=== PATIENT | male | born 1930 | race Caucasian/White ===

== ENCOUNTER 2017-10-18 14:55 | Inpatient (IN) | END 2017-10-21 16:45 | disposition home or self-care (01) | DRG 378 ==

== ENCOUNTER 2018-10-07 18:11 | Emergency (ER) | payer MEDICARE, OTHER ==
[~2018-10-07] VITALS: Ht 170.2 cm; Wt 67.9 kg
[~2018-10-07 18:11] MED LIST: ASPI-817 PO; ATEN-51 PO; CARB1TAB46 PO; CIPR500T4 PO; EXEL46P TD; FINA5TAB4 PO; LEVE10006 PO; LEVE250T5 PO; MEMA10TA PO; METR500T PO; NIFE30TA43 PO; PANT40TA4 PO; SIMV20TA PO
[2018-10-07 18:49] VITALS: Ht 170.2 cm; Wt 67.9 kg
[2018-10-07] MEDS ORDERED: predniSONE 20 MG TAB PO STA (19:32)
[2018-10-07] MEDS ORDERED: DIPHENHYDRAMINE 25 MG CAP PO STA (19:32)
[2018-10-07] MEDS ORDERED: FAMOTIDINE 20 MG TAB PO STA (19:32)
[2018-10-07] MEDS ORDERED: EPINEPHrine 1 MG INJ IM STA (19:32)
[2018-10-07] MEDS ORDERED: PRED20TA PO (21:09)
[2018-10-07] MEDS ORDERED: EPIN0.3P4 INJ (21:09)
[2018-10-07 21:10] VITALS: BP 157/61; PULSE 75; RESP 15
[2018-10-07] MEDS ORDERED: ATEN-51 PO (21:25)
[2018-10-07] MEDS ORDERED: FINA5TAB4 PO (21:25)
[2018-10-07] MEDS ORDERED: CARB1TAB34 PO (21:30)
[2018-10-07] MEDS ORDERED: MEMA10TA PO (21:32)
[2018-10-07] MEDS ORDERED: LEVE10006 PO (21:32)
[2018-10-07] MEDS ORDERED: LEVE250T5 PO (21:32)
[2018-10-07] MEDS ORDERED: NIFE30TA23 PO (21:32)
[2018-10-07] MEDS ORDERED: EXEL46P TD (21:33)
[2018-10-07] MEDS ORDERED: PANT40TA4 PO (21:33)
[2018-10-07] MEDS ORDERED: SIMV20TA PO (21:33)
[2018-10-07] MEDS ORDERED: GLIP2.5T3 PO (21:34)
--- NOTE | 2018-10-07 22:58 | ERD ---
ER Documentation Chief Complaint Chief Complaint POSSIBLE ALLERGIC REACTION TO SOAP, C/O SOB DIFF SWALLOWING, LIP SWELLING HPI Patient is a 88-year-old male with hypertension and diabetes who presents with lip and tongue swelling. He supposedly ate a piece of soap that was wrapped in a rapid he thought it was candy. He did this at 3:30 PM and had swelling afterwards. He did not have any swelling previously. Upon review of old medical records this is the patient's eighth visit to the ER since 2005. His primary doctor is Dr. Allen. ROS All systems reviewed and are negative except as per history of present illness. Medications Home Meds Active Scripts Prednisone* (Prednisone*) 20 Mg Tab, 60 MG PO DAILY for 4 Days, TAB Prov:BELLA TAYLOR MD 10/07/18 Epinephrine (Epipen 2-Alfonzo) 0.3 Mg/0.3 Ml Pen.injctr, 1 EA INJ ONCE PRN for ALLERGIC REACTION, #1 EA Prov:BELLA TAYLOR MD 10/07/18 Reported Medications Glipizide* (Glipizide ER*) 2.5 Mg Tab.er.24, 2.5 MG PO DAILY, TAB 10/07/18 Simvastatin* (Zocor*) 20 Mg Tablet, 20 MG PO QHS, #30 TAB 10/07/18 Rivastigmine* Patch (Exelon* Patch) 4.6 Mg/24 Hr Patch.td24, 1 PATCH TD DAILY, PATCH 10/07/18 Pantoprazole* (Pantoprazole*) 40 Mg Tablet.dr, 40 MG PO AC BREAKFAST, TAB 10/07/18 Nifedipine* (Nifedipine ER*) 30 Mg Tablet.sa, 30 MG PO DAILY, TAB.SA 10/07/18 Memantine* (Namenda*) 10 Mg Tablet, 10 MG PO BID, #60 TAB 10/07/18 Levetiracetam* (Levetiracetam*) 1,000 Mg Tablet, 1000 MG PO BID, TAB 10/07/18 Levetiracetam* (Levetiracetam*) 250 Mg Tablet, 250 MG PO BID, TAB 10/07/18 Carbidopa/Levodopa (Carbidopa-Levodopa 25-100 Tab) 1 Each Tablet, 1 EACH PO QID, TAB 10/07/18 Finasteride* (Finasteride*) 5 Mg Tablet, 5 MG PO DAILY, TAB 10/07/18 Atenolol* (Atenolol*) 25 Mg Tablet, 25 MG PO DAILY, #30 TAB 10/07/18 Discontinued Reported Medications Rivastigmine* Patch (Exelon* Patch) 4.6 Mg/24 Hr Patch.td24, 1 PATCH TD DAILY, PATCH 10/18/17 Atenolol* (Atenolol*) 25 Mg Tablet, 25 MG PO DAILY, #30 TAB 10/18/17 Simvastatin* (Zocor*) 20 Mg Tablet, 20 MG PO QHS, #30 TAB 10/18/17 Pantoprazole* (Pantoprazole*) 40 Mg Tablet.dr, 40 MG PO AC BREAKFAST, TAB 10/18/17 Nifedipine* (Adalat CC*) 30 Mg Tablet.sa, 30 MG PO DAILY, #30 TAB.SA 10/18/17 Memantine* (Namenda*) 10 Mg Tablet, 10 MG PO BID, #60 TAB 10/18/17 Levetiracetam* (Levetiracetam*) 1,000 Mg Tablet, 1000 MG PO BID, TAB 10/18/17 Levetiracetam* (Levetiracetam*) 250 Mg Tablet, 250 MG PO BID, TAB 10/18/17 Finasteride* (Finasteride*) 5 Mg Tablet, 5 MG PO DAILY, TAB 10/18/17 Carbidopa/Levodopa (CARBIDOPA-LEVO 25-100 MG ODT) 1 Each Tab.rapdis, 1 TAB PO QID, #120 TAB 10/18/17 Aspirin* (Aspirin* EC) 81 Mg Tablet.dr, 81 MG PO DAILY, TAB 10/18/17 Discontinued Scripts Metronidazole* (Flagyl*) 500 Mg Tablet, 500 MG PO Q8, #42 TAB Prov:STACEY AUGUST [employer] 10/21/17 Ciprofloxacin Hcl* (Ciprofloxacin Hcl*) 500 Mg Tablet, 500 MG PO BID, #28 TAB Prov:STACEY AUGUST [employer] 10/21/17 Allergies Allergies: Coded Allergies: codeine (Unverified Allergy, Unknown, 10/07/18) PMhx/Soc History of Surgery: Yes (Cranitomoy in 2005) Anesthesia Reaction: No Hx Neurological Disorder: No Hx Respiratory Disorders: No Hx Cardiac Disorders: Yes (CAD, HTN) Hx Psychiatric Problems: No (DEMENTIA) Hx Miscellaneous Medical Probl: Yes (Parkinsons,seizure disorders, DM) Hx Alcohol Use: No Hx Substance Use: No Hx Tobacco Use: No Smoking Status: Never smoker FmHx Family History: diabetes Physical Exam Vitals Vital Signs Date Temp Pulse Resp B/P (MAP) Pulse Ox O2 O2 Flow FiO2 Time Delivery Rate 10/07/18 99.4 75 15 157/61 97 Room Air 21:10 (93) 10/07/18 79 15 171/70 99 20:00 (103) 10/07/18 97.6 80 19 179/74 99 18:49 (109) Physical Exam Const: No acute distress Head: Atraumatic Eyes: Normal Conjunctiva ENT: Left lower lip swelling, no obvious tongue swelling at this time, no oropharyngeal swelling, no stridor over the neck Neck: Full range of motion. No meningismus. No stridor Resp: Clear to auscultation bilaterally Cardio: Regular rate and rhythm, no murmurs Abd: Soft, non tender, non distended. Normal bowel sounds Skin: No petechiae or rashes Back: No midline or flank tenderness Ext: No cyanosis, or edema Neur: Awake and alert Psych: Normal Mood and Affect Results 24 hrs Current Medications Medications Dose Sig/Michael Start Time Status Last (Trade) Ordered Route PRN Stop Time Admin Dose Reason Admin 25 mg ONCE STAT 10/07/18 DC 10/07/18 Diphenhydrami PO 19:32 19:45 ne HCl 10/07/18 19:33 (Benadryl) Epinephrine 0.3 mg ONCE STAT 10/07/18 DC 10/07/18 IM 19:32 19:45 (EPINEPHrine) 10/07/18 19:33 Famotidine 20 mg ONCE STAT 10/07/18 DC 10/07/18 (Pepcid) PO 19:32 19:45 10/07/18 19:33 Prednisone 60 mg ONCE STAT 10/07/18 DC 10/07/18 (Prednisone) PO 19:32 19:45 10/07/18 19:33 Procedures/MDM Patient is a 88-year-old male who presents with acute allergic reaction versus anaphylaxis. The patient was given epinephrine, Benadryl, Pepcid, and prednisone. I was concerned for lip and tongue swelling. However there is no signs of airway compromise at this time. He improved with treatment and wants to go home. He was watched in the emergency department for approximately 2 hours. The patient will be discharged and can follow-up with his primary doctor within 24-48 hours. He can return for any worsening symptoms. Departure Diagnosis: Primary Impression: Allergic reaction Encounter type: initial encounter Qualified Codes: T78.40XA - Allergy, unspecified, initial encounter Condition: Fair Patient Instructions: Allergic Reaction, Drug Referrals: CARMEN ALLEN MD (PCP) Additional Instructions: Llame al doctor MAANA y yeison elicia MELANIE PARA DENTRO DE 1-2 DALY.Dgale a la secretaria que nosotros le instruimos hacer esta melanie.Avise o llame si sandhu condicin se empeora antes de la melanie. Regresa aqui si peor o no mejor. BELLA TAYLOR MD Oct 07, 2018 22:58
== END 2018-10-07 21:25 | disposition home or self-care (01) ==
LOC: E/R 18:11
DX: R22.0 Localized swelling, mass and lump, head (principal); I10 Essential (primary) hypertension; E11.9 Type 2 diabetes mellitus without complications; I25.10 Atherosclerotic heart disease of native coronary artery without angina pectoris; G20 Parkinson's disease; T49.2X5A Adverse effect of local astringents and local detergents, initial encounter
CPT/HCPCS: 96372; 99284; J0171; J7512